=== PATIENT | male | born 1950 | race Caucasian/White ===

== ENCOUNTER 2017-11-21 19:54 | Observation (INO) ==
--- NOTE | 2017-11-21 20:35 | ED ---
HPI General Chief complaint: Headache Stated complaint: H/A Time Seen by Provider: 11/21/17 20:30 Source: patient Mode of arrival: ambulatory Limitations: no limitations History of Present Illness HPI narrative: 67-year-old male patient with history of atrial fibrillation currently on Eliquis, hypertension, pacemaker, presents to the ER today because he states that he has noticed that he has had elevated blood pressures are last 2 days, has been having headaches, chest discomfort, headache is labeled at a 7 out of 10 and the chest discomfort is labeled at a pressure-like 4 out of 10. He has noticed blood pressures around 180/90. He states that about 4 days ago he received news that his valsartan hand was being recalled and a different manage fracture of L start him was replaced. He denies any other medication changes. He denies any vomiting, neurological symptoms, or other symptoms. Related Data Home Medications Medication Instructions Recorded Confirmed apixaban [Eliquis] 5 mg PO BID 11/21/17 11/21/17 meloxicam 15 mg PO DAILY 11/21/17 11/21/17 metoprolol tartrate 25 mg PO BID 11/21/17 11/21/17 propafenone 150 mg PO Q8H 11/21/17 11/21/17 quetiapine 25 mg PO BID 11/21/17 11/21/17 sertraline 100 mg PO DAILY 11/21/17 11/21/17 tamsulosin 0.4 mg PO DAILY 11/21/17 11/21/17 valsartan-hydrochlorothiazide 1 tab PO DAILY 11/21/17 11/21/17 Allergies Allergy/AdvReac Type Severity Reaction Status Date / Time No Known Allergies Allergy Verified 11/21/17 20:31 Review of Systems Except as stated in HPI: all other systems reviewed are negative PMFSH History History Provided By: Patient Medical History Medical History A-fib (Acute) Pacemaker (Acute) Surgical History Surgical History History of appendectomy (Acute) History of cholecystectomy (Acute) History of right knee joint replacement (Acute) Social History Social History Substance History: No History of Abuse Smoking Status: Current every day smoker Tobacco Type: Cigarettes How Often Do You Have a Drink Containing Alcohol: 2 to 3 times a week Recent Travel in [facility] [place] within the Last 8 Weeks: No Recent Out of Country Travel within the Last 8 Weeks: No Exam Narrative Exam Narrative: GENERAL: Well-developed elderly white male patient currently in mild distress. Awake and oriented 3. No photophobia. SKIN: Focused skin assessment warm/dry. HEAD: Atraumatic. Normocephalic. EYES: Pupils equal and round. No scleral icterus. No injection or drainage. ENT: No nasal bleeding or discharge. Mucous membranes pink and moist. NECK: Trachea midline. No JVD. Supple. CARDIOVASCULAR: Regular rate and rhythm. No murmur appreciated. RESPIRATORY: No accessory muscle use. Clear to auscultation. Breath sounds equal bilaterally. GASTROINTESTINAL: Abdomen soft, non-tender, nondistended. Hepatic and splenic margins not palpable. MUSCULOSKELETAL: No obvious deformities. No clubbing. No cyanosis. No edema. NEUROLOGICAL: Awake and alert. No obvious cranial nerve deficits. Motor grossly within normal limits. Normal speech. PSYCHIATRIC: Appropriate mood and affect; insight and judgment normal. Course Hospital Course: EKG shows a paced rhythm at a rate of 60 bpm. No signs of acute ST elevations or depressions. Lab work was fairly unremarkable and troponins are negative. CT the brain did not show any signs of acute intracranial processes. He was given metoprolol, aspirin, and nitroglycerin in the ER with improvement in blood pressure. His headache and chest pain is improved on reevaluation at 10: 30 PM. On further discussion with the patient, he is supposed to follow-up with his operations professional in 2-3 days to get a stress test done. At this point, concerning his chest pains, my plan would be to admit him to the chest pain center for further evaluation of his heart as well. He will need better control his blood pressures well. Case is discussed with Dr. Nguyễn for admission. Initial Documented Vital Signs Temperature 98.3 F 11/21/17 20:00 Pulse Rate 60 11/21/17 20:00 Respiratory Rate 20 11/21/17 20:00 Blood Pressure 178/87 H 11/21/17 20:00 Last Documented Vital Signs Temperature 98.3 F 11/21/17 20:00 Pulse Rate 62 11/21/17 22:11 Respiratory Rate 16 11/21/17 22:11 Blood Pressure 159/88 H 11/21/17 22:11 Pulse Oximetry 98 11/21/17 22:11 Medical Decision Making Differential Diagnosis Differential Diagnosis: Hypertensive urgency versus ACS versus migraine headaches versus electrolyte abnormalities Lab Data Result diagrams: 11/21/17 20:55 11/21/17 20:55 Lab Results 11/21/17 11/21/17 11/21/17 Range/Units 20:55 20:55 20:55 CBC w Diff Auto diff final WBC 9.6 (4.0-11.0) th/mm3 RBC 5.27 (4.50-5.90) mil/mm3 Hgb 17.1 H (13.0-17.0) gm/dL Hct 50.2 (39.0-51.0) % MCV 95.2 (80.0-100.0) fL MCH 32.4 (27.0-34.0) pg MCHC 34.0 (32.0-36.0) % RDW 16.0 (11.6-17.2) % Plt Count 139 L (150-450) th/mm3 MPV 9.1 (7.0-11.0) fL Neut % (Auto) 67.8 (16.0-70.0) % Lymph % (Auto) 18.0 (9.0-44.0) % [place] % (Auto) 7.0 (0.0-8.0) % Eos % (Auto) 3.6 (0.0-4.0) % Baso % (Auto) 3.6 H (0.0-2.0) % Neut # (Auto) 6.6 (1.8-7.7) th/mm3 Lymph # (Auto) 1.7 (1.0-4.8) th/mm3 [place] # (Auto) 0.7 (0.0-0.9) th/mm3 Eos # (Auto) 0.3 (0.0-0.4) th/mm3 Baso # (Auto) 0.3 H (0.0-0.2) th/mm3 WBC Differential . Differential Comment . PT 12.0 H (9.8-11.6) sec INR 1.2 Ratio APTT 32.6 H (24.3-30.1) sec Sodium 138 (136-145) meq/L Potassium 3.9 (3.5-5.1) meq/L Chloride 104 (98-107) meq/L Carbon Dioxide 25.4 (21.0-32.0) meq/L Anion Gap 9 (5-15) meq/L BUN 17 (7-18) mg/dL Creatinine 1.60 H (0.60-1.30) mg/dL Estimated GFR 43 L (>89) mL/min Random Glucose 92 (74-106) mg/dL Calcium 8.1 L (8.5-10.1) mg/dL Troponin I Less than 0.02 L (0.02-0.05) ng/mL Imaging Data Radiologist's impression: Chest X-Ray 11/21/17 20:31 CONCLUSION: Pacemaker, compensated cardiomegaly. Head CT 11/21/17 21:43 CONCLUSION: 1. Negative for an acute process . Discharge Plan Discharge Details Anticipated Discharge Date: 11/21/17 Physicians Team ED Provider: Manny Francis Primary Care Provider: UNKNOWN, Rxs /Orders / Referrals /Forms Prescriptions: No Action quetiapine 25 mg Tablet 25 mg PO BID RF: 0 propafenone 150 mg Tablet 150 mg PO Q8H RF: 0 meloxicam 15 mg Tablet 15 mg PO DAILY RF: 0 sertraline 100 mg Tablet 100 mg PO DAILY RF: 0 tamsulosin 0.4 mg Capsule,Extended Release 24hr 0.4 mg PO DAILY RF: 0 valsartan-hydrochlorothiazide 160-25 mg Tablet 1 tab PO DAILY RF: 0 metoprolol tartrate 25 mg Tablet 25 mg PO BID RF: 0 apixaban [Eliquis] 5 mg Tablet 5 mg PO BID RF: 0 Discharge Interventions Interventions: Vital Signs Last Done: 11/21/17 20:04 Status ED Status: With Doctor
--- NOTE | 2017-11-21 20:59 | XR ---
EXAM DATE: 11/21/2017 8:43 PM EDT AGE/SEX: 67 years / Male INDICATIONS: Chest heaviness on left side. CLINICAL DATA: This is the patient's initial encounter. Patient reports that signs and symptoms have been present for 1 day and indicates a pain score of 2/10. MEDICAL/SURGICAL HISTORY: None. Pacemaker. COMPARISON: C, [facility]ST [facility] [employer] ONLY, 10/04/2017. . FINDINGS: Pacemaker on the left. Cardiomegaly without overt congestive failure or parenchymal inflammatory infi ltrates. No pneumothorax. No pleural effusion. The portion of the bony skeleton visualized is unremar kable. CONCLUSION: Pacemaker, compensated cardiomegaly. Electronically signed by: Ayo Grewal MD 11/21/2017 8:58 PM EDT
[2017-11-21] MEDS ORDERED: Aspirin 325 MG Tablet PO ONE (21:00)
[2017-11-21] MEDS ORDERED: Metoprolol Tartrate 25 MG Tablet PO ONE (21:00)
[2017-11-21 21:04] LABS: Baso # (Auto) 0.3 th/mm3 (0.0-0.2); Baso % (Auto) 3.6 % (0.0-2.0); Eos # (Auto) 0.3 th/mm3 (0.0-0.4); Eos % (Auto) 3.6 % (0.0-4.0); Hematocrit 50.2 % (39.0-51.0); Hemoglobin 17.1 gm/dL (13.0-17.0); Lymph # (Auto) 1.7 th/mm3 (1.0-4.8); Mean Corpuscular Hemoglobin 32.4 pg (27.0-34.0); Mean Corpuscular Volume 95.2 fL (80.0-100.0); Mean Platelet Volume 9.1 fL (7.0-11.0); Mono # (Auto) 0.7 th/mm3 (0.0-0.9); Neut # (Auto) 6.6 th/mm3 (1.8-7.7); Neut % (Auto) 67.8 % (16.0-70.0); Platelet Count 139 th/mm3 (150-450); Red Blood Count 5.27 mil/mm3 (4.50-5.90); White Blood Count 9.6 th/mm3 (4.0-11.0)
[2017-11-21 21:11] LABS: Chloride 104 meq/L (98-107); Potassium 3.9 meq/L (3.5-5.1); Sodium 138 meq/L (136-145)
[2017-11-21 21:14] LABS: Anion Gap 9 meq/L (5-15); Calcium 8.1 mg/dL (8.5-10.1); Carbon Dioxide 25.4 meq/L (21.0-32.0); Glucose,Random 92 mg/dL (74-106)
[2017-11-21 21:15] LABS: Blood Urea Nitrogen 17 mg/dL (7-18)
[2017-11-21 21:17] LABS: Activated Partial Thrombo Time 32.6 sec (24.3-30.1); INR 1.2 Ratio
[2017-11-21 21:18] LABS: Glomerular Filtration Rate 43 mL/min (>89)
--- NOTE | 2017-11-21 22:08 | CT ---
EXAM DATE: 11/21/2017 10:01 PM EDT AGE/SEX: 67 years / Male INDICATIONS: Headache, high blood pressure. CLINICAL DATA: This is the patient's initial encounter. Patient reports that signs and symptoms have been present for 1 day and indicates a pain score of 5/10. MEDICAL/SURGICAL HISTORY: . High blood pressure, atrial fibrillation. Appendectomy. Cholecystect yolanda. Right knee joint replacement. RADIATION DOSE: 57.66 CTDI (mGy) COMPARISON: POI, CT BRAIN W/O CONTRAST, 06/25/2017. . TECHNIQUE: CT of the head without contrast. Using automated exposure control and adjustment of the mA and/or kV according to patient size, radiation dose was kept as low as reasonably achievable to ob tain optimal diagnostic quality images. DICOM format image data is available electronically for revi ew and comparison. FINDINGS: Cerebrum: The ventricles are normal for age. No evidence of midline shift, mass lesion, hemorrhage or acute infarction. No extraaxial fluid collections are seen. Posterior Fossa: The cerebellum and brainstem are intact. The 4th ventricle is midline. The cerebe llopontine angle is unremarkable. Extracranial: The visualized portion of the orbits is intact. Skull: The calvaria is intact. No evidence of skull fracture. CONCLUSION: 1. Negative for an acute process . Electronically signed by: Ayo Grewal MD 11/21/2017 10:07 PM EDT
[2017-11-22] MEDS ORDERED: Acetaminophen 500 MG Tablet PO PRN (00:05)
[2017-11-22] MEDS ORDERED: Acetaminophen 325 MG Tablet PO ONE (00:05)
[2017-11-22] MEDS ORDERED: Morphine Inj 4 MG/ML Vial IV.PUSH PRN (00:05)
[2017-11-22] MEDS ORDERED: QUEtiapine 25 MG Tablet PO ONE (00:13)
[2017-11-22 01:13] LABS: Creatine Kinase 58 U/L (39-308)
[2017-11-22 04:07] LABS: Creatine Kinase 45 U/L (39-308)
[2017-11-22] MEDS: Propafenone 150 MG Tablet PO SCH ×2 (06:07→13:24)
--- NOTE | 2017-11-22 08:06 | P.HP ---
History of Present Illness Primary Care Physician: UNKNOWN History of Present Illness: This is a 67-year-old male patient with a known medical history of atrial fibrillation on Eliquis, hypertension, pacemaker placement who presented to the ED with complaints of elevated blood pressure as well as chest discomfort. Patient states that on Wednesday he noticed a headache as well as when he took his blood pressure readings were high, he states that the highest reading was 197/97. He states he did take another dose of his valsartan and it did not bring down his blood pressure. Over the course of the next 2 days he was suffering from headaches as well as mild chest discomfort, located in his left sided chest, felt like a weight was on his chest, was pretty consistent nature, rated a 5 out of 10 on its pain scale, denied any known aggravating or alleviating factors, denied any associated nausea, vomiting, sweating or shortness of breath. He states that the pain improved once he arrived to the ED and his blood pressure was controlled and he was given metoprolol, aspirin and nitroglycerin. Patient does follow with the morgue librarian, was actually supposed to get a cardiac stress test on November 24. He does have a pacemaker placed, this was placed secondary to frequent episodes of fainting. He states that his neurological symptoms have improved since the pacemaker was placed. He denies any recent illness including fever, chills, cough, shortness of breath , abdominal pain, nausea, vomiting, diarrhea or dysuria. He is being treated by the ENT for an infection of his gums, recently finished a dose of amoxicillin. Patient does admit to smoking his entire life, denies any family history of any cardiovascular disease. Denies any new changes to his medications. Does admit that he has been compliant with his medications as well. - Diagnosis (1) Hypertension (2) Chest pain Review of Systems All other systems reviewed negative except as stated in HPI PMFSH - History History Provided By: Patient - Medical History Medical History: Medical History (Last Updated 11/21/17 @ 20:37 by Lizbeth Schmidt RN) A-fib Pacemaker - Surgical History Surgical History: Surgical History (Last Updated 11/21/17 @ 20:38 by Lizbeth Schmidt RN) History of appendectomy History of cholecystectomy History of right knee joint replacement - Family History Family History: Family History (Last Updated 11/22/17 @ 08:02 by Angélica Banks) Other No family history of cardiovascular disease - Tobacco History Second Hand Smoke Exposure: Yes Tobacco Use In Past 30 Days: Yes Smoking Status: Current every day smoker Tobacco Type: Cigars - Alcohol History How Often Do You Have a Drink Containing Alcohol: 4 or more times a week - Substance Use History Substance History: No History of Abuse - Travel History Recent Travel in the [place] Within the Last 8 Weeks: No Recent Travel Out of the Country Within the Last 8 Weeks: No - Immunization History Tetanus Immunization: Unsure Hx Influenza Vaccine This Season: Yes Medications and Allergies Active Medications: Active Medications Acetaminophen (Tylenol) 500 mg PO Q4H PRN PRN Reason: HEADACHE Hydrocodone Bitart/Acetaminophen ([place] 7.5/325) 1 tab PO Q4H PRN PRN Reason: PAIN SCALE 1 TO 7 Apixaban (Eliquis) 5 mg PO BID [facility] Aspirin (Aspirin) 325 mg PO DAILY [facility] Metoprolol Tartrate (Lopressor) 25 mg PO BID [facility] Morphine Sulfate (Morphine Inj) 2 mg IV.PUSH Q4H PRN PRN Reason: PAIN SCALE 8 TO 10 Nitroglycerin (Nitrostat Sl) 0.4 mg SL Q5M PRN PRN Reason: CHEST PAIN Valsartan 160mg -Hct (25mg Tab) 0 each PO DAILY [facility] Propafenone HCl (Rythmol) 150 mg PO Q8HR [facility] Last Admin: 11/22/17 06:07 Dose: 150 mg Quetiapine Fumarate (Seroquel) 25 mg PO BID [facility] Sertraline HCl (Zoloft) 100 mg PO DAILY [facility] Sodium Chloride (Ns Flush) 2 ml IV.FLUSH BID [facility] Sodium Chloride (Ns Flush) 2 ml IV.FLUSH PRN PRN PRN Reason: FLUSH AFTER USING IV ACCESS Tamsulosin HCl (Flomax) 0.4 mg PO DAILY [facility] Allergies Allergy/AdvReac Type Severity Reaction Status Date / Time No Known Allergies Allergy Verified 11/21/17 20:31 Home Medications Medication Instructions Recorded Confirmed Type apixaban [Eliquis] 5 mg PO BID 11/21/17 11/21/17 History meloxicam 15 mg PO DAILY 11/21/17 11/21/17 History metoprolol tartrate 25 mg PO BID 11/21/17 11/21/17 History propafenone 150 mg PO Q8H 11/21/17 11/21/17 History quetiapine 25 mg PO BID 11/21/17 11/21/17 History sertraline 100 mg PO DAILY 11/21/17 11/21/17 History tamsulosin 0.4 mg PO DAILY 11/21/17 11/21/17 History valsartan-hydrochlorothiazide 1 tab PO DAILY 11/21/17 11/21/17 History Exam Vital signs: Vital Signs 11/21/17 20:00 11/21/17 20:04 11/21/17 20:49 Temperature 98.3 F Pulse Rate 60 60 60 Respiratory Rate 20 16 16 Blood Pressure 178/87 H 184/81 H 178/87 H Pulse Oximetry 99 98 11/21/17 22:11 11/21/17 23:39 11/22/17 00:20 Temperature 98.1 F Pulse Rate 62 63 61 Respiratory Rate 16 16 18 Blood Pressure 159/88 H 152/83 H 163/84 H Pulse Oximetry 98 96 11/22/17 01:51 11/22/17 04:00 Temperature 98.4 F Pulse Rate 60 60 Respiratory Rate 18 Blood Pressure 156/80 H Pulse Oximetry 95 Intake & Output 11/21/17 11/22/17 11/22/17 18:59 06:59 18:59 Weight 83.2 kg Other: # Voids 2 Weight On Admission 83.2 kg Narrative: GENERAL: Well-developed, well-nourished patient in [facility]. SKIN: Warm and dry. No rash. HEAD: Normocephalic. Atraumatic. EYES: Pupils equal and round. No scleral icterus. No injection or drainage. ENT: No nasal bleeding or discharge. Mucous membranes pink and moist. NECK: Supple. Trachea midline. CARDIOVASCULAR: Regular rate and rhythm. S1, S2 noted. No murmur appreciated. No chest pain to palpation. RESPIRATORY: No accessory muscle use. Clear to auscultation. Breath sounds equal bilaterally. GASTROINTESTINAL: Abdomen soft, non-tender, nondistended. Normoactive bowel sounds x4. MUSCULOSKELETAL: No obvious deformities. Extremities without clubbing, cyanosis , or edema. NEUROLOGICAL: Awake and alert. No obvious cranial nerve deficits. Motor grossly within normal limits. 5/5 muscle strength in bilateral upper and lower extremities. Normal speech. PSYCHIATRIC: Appropriate mood and affect; insight and judgment normal. Results - Labs CBC & Chem 7: 11/21/17 20:55 11/21/17 20:55 Labs: Laboratory Results - last 24 hr 11/21/17 11/21/17 11/21/17 20:55 20:55 20:55 CBC w Diff Auto diff final WBC 9.6 RBC 5.27 Hgb 17.1 H Hct 50.2 MCV 95.2 MCH 32.4 MCHC 34.0 RDW 16.0 Plt Count 139 L MPV 9.1 Neut % (Auto) 67.8 Lymph % (Auto) 18.0 [place] % (Auto) 7.0 Eos % (Auto) 3.6 Baso % (Auto) 3.6 H Neut # (Auto) 6.6 Lymph # (Auto) 1.7 [place] # (Auto) 0.7 Eos # (Auto) 0.3 Baso # (Auto) 0.3 H WBC Differential . Differential Comment . PT 12.0 H INR 1.2 APTT 32.6 H Sodium 138 Potassium 3.9 Chloride 104 Carbon Dioxide 25.4 Anion Gap 9 BUN 17 Creatinine 1.60 H Estimated GFR 43 L Random Glucose 92 Calcium 8.1 L Total Creatine Kinase Troponin I Less than 0.02 L 11/22/17 11/22/17 00:15 03:30 CBC w Diff WBC RBC Hgb Hct MCV MCH MCHC RDW Plt Count MPV Neut % (Auto) Lymph % (Auto) [place] % (Auto) Eos % (Auto) Baso % (Auto) Neut # (Auto) Lymph # (Auto) [place] # (Auto) Eos # (Auto) Baso # (Auto) WBC Differential Differential Comment PT INR APTT Sodium Potassium Chloride Carbon Dioxide Anion Gap BUN Creatinine Estimated GFR Random Glucose Calcium Total Creatine Kinase 58 45 Troponin I Less than 0.02 L Less than 0.02 L - Imaging Impressions Chest X-Ray 11/21/17 20:31 CONCLUSION: Pacemaker, compensated cardiomegaly. Head CT 11/21/17 21:43 CONCLUSION: 1. Negative for an acute process . Caprini VTE Risk Assessment Caprini VTE Risk Assessment: Moderate/High Risk (score >= 2) Caprini Risk Assessment Model: Point Value = 1 Point Value = 2 Point Value = 3 Point Value = 5 Age 41-60 Minor surgery BMI > 25 kg/m2 Swollen legs Varicose veins or History of unexplained or recurrent spontaneous Oral contraceptives or hormone replacement Sepsis (< 1 month) Serious lung disease, including pneumonia (< 1 month) Abnormal pulmonary function Acute myocardial infarction Congestive heart failure (< 1 month) History of inflammatory bowel disease Medical patient at bed rest Age 61-74 Arthroscopic surgery Major open surgery (> 45 min) Laparoscopic surgery (> 45 min) Malignancy Confined to bed (> 72 hours) Immobilizing plaster cast Central venous access Age >= 75 History of VTE Family history of VTE Factor V Leiden Prothrombin [id number] Lupus anticoagulant Anticardiolipin antibodies Elevated serum homocysteine Heparin-induced thrombocytopenia Other congenital or acquired thrombophilia Stroke (< 1 month) Elective arthroplasty Hip, pelvis, or leg fracture Acute spinal cord injury (< 1 month) Prophylaxis Regimen: Total Risk Factor Score Risk Level Prophylaxis Regimen 0-1 Low Early ambulation 2 Moderate Order ONE of the following: *Sequential Compression Device (SCD) *Heparin 5000 units SQ BID 3-4 Higher Order ONE of the following medications: *Heparin 5000 units SQ TID *Enoxaparin/Lovenox 40 mg SQ daily (WT < 150 kg, CrCl > 30 mL/min) *Enoxaparin/Lovenox 30 mg SQ daily (WT < 150 kg, CrCl > 10-29 mL/min) *Enoxaparin/Lovenox 30 mg SQ BID (WT < 150 kg, CrCl > 30 mL/min) AND/OR *Sequential Compression Device (SCD) 5 or more Highest Order ONE of the following medications: *Heparin 5000 units SQ TID (Preferred with Epidurals) *Enoxaparin/Lovenox 40 mg SQ daily (WT < 150 kg, CrCl > 30 mL/min) *Enoxaparin/Lovenox 30 mg SQ daily (WT < 150 kg, CrCl > 10-29 mL/min) *Enoxaparin/Lovenox 30 mg SQ BID (WT < 150 kg, CrCl > 30 mL/min) AND *Sequential Compression Device (SCD) Assessment and Plan - Assessment (1) Hypertension Code(s): I10 - Essential (primary) hypertension Status: Acute (2) Chest pain Code(s): R07.9 - Chest pain, unspecified Status: Acute - Plan This is a 67-year-old male patient with a known medical history of atrial fibrillation on Eliquis, hypertension, pacemaker placement who presented to the ED with complaints of elevated blood pressure as well as chest discomfort. Chest pain, atypical -Likely secondary to elevated blood pressure. -Patient has been admitted to the observation unit, serial troponins and serial EKGs have been ordered for ruling out ACS purposes. Troponin trend flat. EKG reviewed showing paced rhythm with controlled heart rate, no ST changes noted. Patient's chest pain has resolved. -Patient was given metoprolol, aspirin and nitroglycerin in the ED with improvement of chest pain as well as blood pressure. -CXR reviewed and unremarkable. -Any cardiac telemetry, monitor for any arrhythmias. Patient has a pacemaker placed. -ACS has been ruled out. Patient will undergo a myocardial perfusion scan to further rule out any ischemia. -If nuclear stress test is negative as well as blood pressure controlled, patient will be discharged home to follow-up with morgue librarian and PCP. -Patient is stable at this time and agreeable to the plan. Hypertension, uncontrolled upon presentation Headache suspect secondary to above -Head CT was done, did not show any acute intracranial processes. Headache and chest pain improved last evening with dose of aspirin, metoprolol and nitroglycerin. -Continue to monitor blood pressure trends. -Continue home medications including valsartan/HCTZ, metoprolol. -Will increase dose of HCTZ from 25 mg to 50 mg as well as valsartan dose from 160 to 200 when dc home. -Patient has an appointment scheduled with morgue librarian. Will have follow up. Acute kidney injury -Creatinine 1.6 on presentation, GFR 43. Will give 500 mL bolus. This is likely secondary to elevated blood pressure. Attempt better control of blood pressure. -Will have patient follow-up with PCP, denies any dysuria or CVA tenderness. He follows close with PCP. DVT prophylaxis: SCDs. Eliquis.
[2017-11-22] MEDS ORDERED: Sodium Chlor 0.9% Inj 500 ML IV.SIG ONE (08:19)
[2017-11-22] MEDS ORDERED: hydroCHLOROthiazide 25 MG Tablet PO ONE (08:30)
[2017-11-22] MEDS ORDERED: VALSARTAN 160 MG PO SCH (09:00)
[2017-11-22] MEDS ORDERED: Aspirin 325 MG Tablet PO SCH (09:00)
[2017-11-22] MEDS ORDERED: Sertraline 100 MG Tablet PO SCH (09:00)
[2017-11-22] MEDS ORDERED: Metoprolol Tartrate 25 MG Tablet PO SCH (09:00)
[2017-11-22] MEDS ORDERED: QUEtiapine 25 MG Tablet PO SCH (09:00)
[2017-11-22] MEDS ORDERED: HYDROCHLOROTHIAZIDE 25 MG PO SCH (09:00)
[2017-11-22 09:20] VITALS: RESP 17; O2SAT 97
[2017-11-22] MEDS ORDERED: Regadenoson Inj 0.4 MG/5 ML Syringe IV.PUSH ONE (11:14)
--- NOTE | 2017-11-22 12:13 | NM ---
EXAM DATE: 11/22/2017 12:04 PM EDT AGE/SEX: 67 years / Male INDICATIONS:Angina. Atrial fibrillation Substernal chest pain. CLINICAL DATA: This is the patient's initial encounter. Patient reports that signs and symptoms have been present for 1 day and indicates a pain score of 5/10. MEDICAL/SURGICAL HISTORY: Hypertension. Appendectomy. Cholecystectomy. Pacemaker. Right knee replacement. COMPARISON: No prior exams available for comparison. DOSE: 8.5 mCi Tc 99m Myoview at rest 25.4 mCi [id number] at stress 0.4 mg Lexiscan STRESS SYMPTOMS: Asymptomatic. EJECTION FRACTION: 50 % TECHNIQUE: The patient underwent pharmacologic stress with infusion of prescribed dose. Continuous ECG tracing was monitored during stress. Gated SPECT imaging was performed after stress and conventi onal SPECT imaging was performed at rest. The examination was performed on a SPECT/CT scanner, both attenuation and non-corrected datasets were reviewed. FINDINGS: Distribution: The maximum perfused segment at stress is in the lateral wall. Perfusion Study: The pattern of perfusion at stress is within normal limits. Gated Study: There are intact wall motion and wall thickening without hypokinetic or dyskinetic segm ents. The ejection fraction is calculated at 50%. RISK CATEGORY: Low (<1% Annual Motality Rate) CONCLUSION: Unremarkable myocardial perfusion. Electronically signed by: Clay Vo MD 11/22/2017 12:12 PM EDT
[2017-11-22 13:20] VITALS: BP 153/78; PULSE 60; TEMP 96.7
--- NOTE | 2017-11-22 21:55 | ECG ---
Date Performed: 11/22/2017 Time Performed: 03:44:46 PTAGE: 67 years EKG: ELECTRONIC ATRIAL PACEMAKER ELECTRONIC VENTRICULAR PACEMAKER ABNORMAL RHYTHM ECG PREVIOUS TRACING : 11/22/2017 00.29 Since the previous tracing, no significant change noted DOCTOR: Steve Dobbs Interpretating Date/Time 11/22/2017 21:54:29
--- NOTE | 2017-11-22 22:00 | ECG ---
Date Performed: 11/22/2017 Time Performed: 00:29:33 PTAGE: 67 years EKG: ELECTRONIC ATRIAL PACEMAKER ELECTRONIC VENTRICULAR PACEMAKER -- CONTOUR ANALYSIS ABNORMAL E CG PREVIOUS TRACING : 11/21/2017 20.45 Since the previous tracing, no significant change noted DOCTOR: Steve Dobbs Interpretating Date/Time 11/22/2017 21:58:54
--- NOTE | 2017-11-22 22:02 | ECG ---
Date Performed: 11/21/2017 Time Performed: 20:45:16 PTAGE: 67 years EKG: ELECTRONIC ATRIAL PACEMAKER ELECTRONIC VENTRICULAR PACEMAKER ABNORMAL RHYTHM ECG NO PREVIOUS TRACING DOCTOR: Steve Dobbs Interpretating Date/Time 11/22/2017 22:00:21
--- NOTE | 2017-11-23 16:54 | TR ---
Date Performed: 11/22/2017 Time Performed: 11:26:47 DOCTOR: Shakila Connor DRUG LIST: CLINICAL HISTORY: CHEST PAIN REASON FOR TEST: Chest pain REASON FOR ENDING: OBSERVATION: CONCLUSION: Lexiscan stress test was performed under standard four minute protocol. Radionuclid e was injected one minute prior to ending the test. No electrocardiographic abormalities were present to suggest ischemia. Nuclear imaging and interpretation are pending. COMMENTS: no ischemia
== END 2017-11-22 14:25 | disposition home or self-care (01) ==
LOC: PHED 19:54 → PHEDA 19:54 → PH3 19:54
PROVIDERS: ADMIT Hospitalist; ATTEND Hospitalist
DX: I48.91 Unspecified atrial fibrillation; Z96.651 Presence of right artificial knee joint; R07.89 Other chest pain; F17.210 Nicotine dependence, cigarettes, uncomplicated; R94.31 Abnormal electrocardiogram [ECG] [EKG]; Z79.01 Long term (current) use of anticoagulants; I10 Essential (primary) hypertension; Z90.49 Acquired absence of other specified parts of digestive tract; N17.9 Acute kidney failure, unspecified; Z95.0 Presence of cardiac pacemaker